=== PATIENT | male | born 1945 | race Caucasian/White ===

== ENCOUNTER → 2017-01-16 | Outpatient (CLI) | payer BC, OTHER ==
[~2017-01-16] VITALS: Ht 175.3 cm; Wt 74.2 kg
[~2017-01-16] MED LIST: CEPHALEXIN500 MG PO; CLARITIN10 M2 PO; HYDROCODON-ACE1 EAC1 PO; HYDROCODONE-APA1 TA1 PO; MELOXICAM7.5 MG PO; MOBIC7.5 MG PO; MS CONTIN 30 MG30 M1 PO; MS CONTIN30 MG PO; NORCO 7.5-3251 EACH PO; NORFLEX100 MG PO; PENICILLIN V P500 MG PO; PRILOSEC 20 MG20 MG PO; PROTONIX40 M1 PO; RESTORIL30 MG PO; VALIUM5 MG PO
--- NOTE | ~2017-01-16 | HPC ---
[facility] [address] [place] [address] PAIN MANAGEMENT CONSULTATION Name: REBEKAH RAZO Room #: REG [facility] Yi.#: [id number] Admission: 01/16/17 Attend Phys: Moshe Child DO Discharge: Date of : 47 Report #: [id number] THIS REPORT FOR: //name// CC: Irving Child HISTORY OF PRESENT ILLNESS: The patient is a 71-year-old gentleman well known to the pain clinic, typically treated for lumbar radiculopathy status post decompressive laminectomy, abdominal pain requiring complex medication management, component of axial back pain. Last seen in the pain clinic 10/17/2016. Continued on baseline medications. Urine drug screen at that time was positive for prescribed medications. He returns to pain clinic today noting medications are providing sufficient analgesia to participate in activities of daily living. No problems with daytime somnolence, mental acuity changes, constipation. He splits his time between [place] and a home at [place], [place]. Recently drove back from [place], had a 9-hour drive and a 6-hour drive. Actually, he did fairly well with this. Notes medications again are helpful. Average daily pain score is 2-3 on a 0-10 visual analog scale. Primary pain is chronic abdominal and low back. PHYSICAL EXAMINATION: GENERAL: Shows 71-year-old gentleman, BMI is 24.1 kilograms per meter squared. VITAL SIGNS: Vital signs stable as noted on the EMR. NEUROLOGIC: Cranial 2-12 are grossly intact. EYES: Pupils equal, reactive to light and accommodation. Extraocular muscles are intact. EXTREMITIES: Rises from chair using armrest, diffuse tenderness across the low back. GASTROINTESTINAL: Abdominal exam is deferred. MUSCULOSKELETAL: Gait is tandem. We reviewed the fact that opiate medications are being used to provide analgesia adequate to support activities of daily living, not attempting to achieve a specific pain score on the 0-10 Visual Analog Scale. The current opiate medications are providing sufficient analgesia to allow the patient to participate in activities of daily living. The patient is not exhibiting any aberrant behavior suggestive of drug diversion. The patient is not having any adverse reactions to medications. The patient is not suffering from daytime somnolence or mental acuity changes. The patient is managing opiate-induced constipation with appropriate rqfl-wxb-diqbwnv agents and dietary considerations. The patient was counseled on concern for caution with operating a motor vehicle while using opiate medications. A physical exam was performed and the patient's functional status was evaluated. [address] [address] PAIN MANAGEMENT CONSULTATION Name: REBEKAH RAZO Room #: REG [facility]#: [id number] Admission: 01/16/17 Attend Phys: Moshe Child DO Discharge: Date of : 49 Report #: [id number] All patients with back pain were advised against the bed rest greater than 4 days and were advised to return to normal activities. Pain score assessment was noted and the treatment plan was reviewed with the patient. All current medications, both prescribed and OTC were reviewed and reconciled on the electronic medical record. Tobacco screening was accomplished and smoking cessation was advised when indicated. BMI was noted and diet/exercise modification was recommended for all patients following outside normal parameters. I reviewed with the patient today their responsibilities to safeguard prescription medications, reviewed their responsibility to utilize medications only as prescribed by the physician. They are to seek and receive pain medications only from 1 physician group ( [facility]). They are to use 1 pharmacy and keep the clinic informed if they change pharmacies. Their responsibilities include making followup visits in a timely fashion and to avoid abrupt discontinuation of medication usage. Their responsibilities further include bringing their medications (bottles from the pharmacy with residual pills) to the visit for possible confirmation of pill counts and the patient understands it is their responsibility to submit to random drug screens to ensure both that the medications prescribed are present, and that no other controlled substances are present. All prescriptions provided today were generated electronically. ASSESSMENT: Lumbar radiculopathy status post decompressive laminectomy, chronic pain syndrome requiring complex medication management, axial back pain, abdominal pain, stable on baseline complex medication. RECOMMENDATIONS: Continue current medication unchanged including MS Contin 30 mg b.i.d., hydrocodone 10/325 one tablet 3-4 times a day, limit 100 tablets for 30 days, temazepam 30 mg a.h.s. for insomnia, Valium 5 mg b.i.d. for spasm along with Robaxin 500 mg b.i.d. Continue meloxicam 15 mg 1 a day. We did talk about taking a daily aspirin. This is specifically on days at least when he is going to be driving or flying or have prolonged periods sitting time. I have taken the liberty of writing for 3 months of current medication. Follow up at that time, earlier if needed. <ELECTRONICALLY SIGNED> By: Moshe Child DO 01/17/17 0948 [id number] [id number] Moshe Child DO /nt
[2017-01-16 10:48] VITALS: BP 151/85
== END | disposition home or self-care (01) ==
LOC: PAIN 06:58
DX: M54.16 Radiculopathy, lumbar region (principal); R10.9 Unspecified abdominal pain; M54.9 Dorsalgia, unspecified; G89.4 Chronic pain syndrome; Z87.891 Personal history of nicotine dependence

== ENCOUNTER → 2017-04-17 | Outpatient (CLI) | payer BC, OTHER ==
[~2017-04-17] VITALS: Ht 175.3 cm; Wt 74.9 kg
[~2017-04-17] MED LIST changes: +CLONAZEPAM 1 MG1 M1 PO
--- NOTE | ~2017-04-17 | HPC ---
[facility] [place] [address] PAIN MANAGEMENT CONSULTATION Name: REBEKAH RAZO Room #: REG [facility] Yi.#: [id number] Admission: 04/17/17 Attend Phys: Moshe Child DO Discharge: Date of : 47 Report #: [id number] THIS REPORT FOR: //name// CC: Irving Child The patient is a 71-year-old gentleman, long known to the pain clinic, being treated for chronic abdominal pain, lumbar radiculopathy, status post decompressive laminectomy, axial back pain, requiring high risk complex medication management. Last urine drug screen 10/17/2016, was positive for prescribed medications. The patient was last seen in the pain clinic 01/16/2017, continued on MS Contin 30 mg b.i.d., hydrocodone 10/325 one tablet 3-4 times a day, limit 100 tablets for 30 days, Valium 5 mg b.i.d. for spasm along with Robaxin 500 mg b.i.d. Meloxicam 15 mg daily, though I had suggested "nondaily" usage in consideration of coronary artery disease risk. He has been using temazepam 30 mg at bedtime to help with sleep, but is struggling with insomnia. He returns to pain clinic today noting pain medications are helpful to enable him to participate in activities of daily living, but again sleep remains fairly elusive. Notes chronic low back and abdominal pain, sharp, constant, aching, rates it 3-4 on VAS. He states he goes to bed around 10:00-10:30, does not utilize any "screen devices," does not use tablet, computer or TV. Still struggles to generate sleep. PHYSICAL EXAMINATION: Shows a 71-year-old gentleman, BMI is 24.4 kg/m2, vital signs show modest hypertension, blood pressure 156/94, pulse 89, and respirations 14. Alert and oriented to person, place and time, judged to be a reasonable historian. Rises from chair using armrest. Gait is generally tandem. Some diffuse abdominal pain. Lumbar flexion is limited. Lower extremity strength is symmetric. He lives in [place], [place] about half of the year. 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 This does require a fair bit of time on his feet. We done occasional epidural injections to help with exacerbation of radicular pain typically seen with this, we will anticipate likely doing a repeat epidural injection when I see him back in 3 months. Today, we did talk about sleep generation and relaxation techniques to include guided imagery. Suggested he look into the marie "F2G." Guided imagery talk sessions, which may help him relax. [address] [address] PAIN MANAGEMENT CONSULTATION Name: REBEKAH RAZO Room #: REG [facility]#: [id number] Admission: 04/17/17 Attend Phys: Moshe Child DO Discharge: Date of : 47 Report #: [id number] We also talked about in fact the most soporific agents typically render patient "unconscious," but do not allow him to enter REM sleep hence he never gets great restorative sleep. Today, we talked about rotating temazepam to clonazepam 1 mg at bedtime. This agent is purported to preserve REM sleep. We will try this for 3 months. We reviewed the fact that opiate medications are being used to provide analgesia adequate to support activities of daily living, not attempting to achieve a specific pain score on the 0-10 Visual Analog Scale. The current opiate medications are providing sufficient analgesia to allow the patient to participate in activities of daily living. The patient is not exhibiting any aberrant behavior suggestive of drug diversion. The patient is not having any adverse reactions to medications. The patient is not suffering from daytime somnolence or mental acuity changes. The patient is managing opiate-induced constipation with appropriate iyjf-vvi-argsrys agents and dietary considerations. The patient was counseled on concern for caution with operating a motor vehicle while using opiate medications. A physical exam was performed and the patient's functional status was evaluated. All patients with back pain were advised against the bed rest greater than 4 days and were advised to return to normal activities. Pain score assessment was noted and the treatment plan was reviewed with the patient. All current medications, both prescribed and OTC were reviewed and reconciled on the electronic medical record. Tobacco screening was accomplished and smoking cessation was advised when indicated. BMI was noted and diet/exercise modification was recommended for all patients following outside normal parameters. I reviewed with the patient today their responsibilities to safeguard prescription medications, reviewed their responsibility to utilize medications only as prescribed by the physician. They are to seek and receive pain medications only from 1 physician group ( [facility]). They are to use 1 pharmacy and keep the clinic informed if they change pharmacies. Their responsibilities include making followup visits in a timely fashion and to avoid abrupt discontinuation of medication usage. Their responsibilities further include bringing their medications (bottles from the pharmacy with residual pills) to the visit for possible confirmation of pill counts and the patient understands it is their responsibility to submit to random drug screens to ensure both that the medications prescribed are present, and that no other controlled substances are present. All prescriptions provided today were generated electronically. ASSESSMENT: Lumbar radiculopathy status post decompressive laminectomy, abdominal pain, axial back pain requiring high risk complex medication management, complicated by some chronic insomnia. [facility] [address] [place] [address] PAIN MANAGEMENT CONSULTATION Name: REBEKAH RAZO Room #: REG [facility]..#: [id number] Admission: 04/17/17 Attend Phys: Moshe Child DO Discharge: Date of : 49 Report #: [id number] RECOMMENDATION: Continue baseline medications unchanged including MS Contin 30 mg b.i.d., hydrocodone 10/325 limiting 100 tablets for 30 days. We will rotate from temazepam to clonazepam 1 mg at bedtime. Follow up in 3 months for reevaluation, earlier if needed. <ELECTRONICALLY SIGNED> By: Moshe Child DO 04/18/17 0705 1238 1743 Moshe Child DO /nt
[2017-04-17 09:32] VITALS: BP 156/94
== END ==
LOC: PAIN 06:46
DX: M54.16 Radiculopathy, lumbar region (principal); R10.9 Unspecified abdominal pain

== ENCOUNTER → 2017-07-14 | Outpatient (CLI) | payer BC, OTHER ==
[~2017-07-14] VITALS: Ht 175.3 cm; Wt 73.4 kg
--- NOTE | ~2017-07-14 | HPC ---
[facility] [address] [place] [address] PAIN MANAGEMENT CONSULTATION Name: REBEKAH RAZO [id number] Admission: 07/14/17 Attend Phys: Moshe Child DO Discharge: Date of : 47 Report #: [id number] THIS REPORT FOR: //name// CC: Irving Child HISTORY OF PRESENT ILLNESS: The patient is a very pleasant 71-year-old gentleman long known to the pain clinic, being treated for lumbar radiculopathy, status post decompressive laminectomy, chronic abdominal pain, insomnia, requiring high risk complex medication management. The patient was last seen in pain clinic on 04/17/2017, continued on high dose narcotics, approximately 75 mg equivalent of morphine a day (MS Contin 30 mg b.i.d. with hydrocodone 7.5/325 one tablet 3-4 times a day, limit 100 tablets for 30 days). At prior visit, we had rotated from temazepam to clonazepam at bedtime. The patient has done better with this from insomnia standpoint. We have continued Norflex 100 mg b.i.d. for spasm and Valium 5 mg b.i.d. for a subjective vertigo. Last urine drug screen on 10/17/2016 was positive for prescribed medications. The patient returns to pain clinic today noting medications are generally providing sufficient analgesia to participate in activities of daily living. No problems with daytime somnolence, mental acuity changes, constipation. Pain primarily low back, bilateral legs and shoulders, chronic abdominal pain which is generalized. Rates his pain fairly high in the morning, better throughout the day. PHYSICAL EXAMINATION: Shows 71-year-old gentleman, BMI is 23.9 kilograms per meter squared. Vital signs stable as noted in the EMR. Does not use tobacco products, former smoker. Rises from chair easily. Gait is tandem. Diffuse low back pain. Lumbar flexion is limited. Abdominal exam is deferred. We reviewed the fact that opiate medications are being used to provide analgesia adequate to support activities of daily living, not attempting to achieve a specific pain score on the 0-10 Visual Analog Scale. The current opiate medications are providing sufficient analgesia to allow the patient to participate in activities of daily living. The patient is not exhibiting any aberrant behavior suggestive of drug diversion. The patient is not having any adverse reactions to medications. The patient is not suffering from daytime somnolence or mental acuity changes. The patient is managing opiate-induced constipation with appropriate adnw-tyl-uxqafks agents and dietary considerations. The patient was counseled on concern for caution with operating a motor vehicle while using opiate medications. A physical exam was performed and the patient's functional status was evaluated. All patients with back pain were advised against the bed rest greater than 4 days and were advised to return to normal activities. Pain score assessment was [address] [address] PAIN MANAGEMENT CONSULTATION Name: REBEKAH RAZO [facility] [id number] Admission: 07/14/17 Attend Phys: Moshe Child DO Discharge: Date of : 49 Report #: [id number] noted and the treatment plan was reviewed with the patient. All current medications, both prescribed and OTC were reviewed and reconciled on the electronic medical record. Tobacco screening was accomplished and smoking cessation was advised when indicated. BMI was noted and diet/exercise modification was recommended for all patients following outside normal parameters. I reviewed with the patient today their responsibilities to safeguard prescription medications, reviewed their responsibility to utilize medications only as prescribed by the physician. They are to seek and receive pain medications only from 1 physician group ( [facility]). They are to use 1 pharmacy and keep the clinic informed if they change pharmacies. Their responsibilities include making followup visits in a timely fashion and to avoid abrupt discontinuation of medication usage. Their responsibilities further include bringing their medications (bottles from the pharmacy with residual pills) to the visit for possible confirmation of pill counts and the patient understands it is their responsibility to submit to random drug screens to ensure both that the medications prescribed are present, and that no other controlled substances are present. All prescriptions provided today were generated electronically. ASSESSMENT: Chronic abdominal pain, chronic back pain status post lumbar decompressive laminectomy, history of insomnia requiring high risk complex medication management, stable on baseline medication. RECOMMENDATION: Continue MS Contin 30 mg b.i.d.; hydrocodone 7.5/325, 100 tablets for 30 days; Valium 5 mg b.i.d.; Robaxin 500 mg b.i.d. and clonazepam 1 mg at bedtime. Follow up in 3 months for reevaluation, early if needed. <ELECTRONICALLY SIGNED> By: Moshe Child DO 07/16/17 0834 1050 [id number] Moshe Child DO /nt
[2017-07-14 09:23] VITALS: BP 161/89
== END ==
LOC: PAIN 07:16
DX: M54.16 Radiculopathy, lumbar region (principal); R10.9 Unspecified abdominal pain; M54.5 Low back pain; G47.00 Insomnia, unspecified; Z98.890 Other specified postprocedural states; Z79.899 Other long term (current) drug therapy

== ENCOUNTER → 2017-09-26 | Outpatient (CLI) | payer BC, OTHER ==
[~2017-09-26] VITALS: Ht 175.3 cm; Wt 73.9 kg
[~2017-09-26] MED LIST changes: +HYDROCODON-ACE1 EA12 PO; +MS CONTIN15 MG PO
--- NOTE | ~2017-09-26 | HPC ---
[facility] [address] [place] [address] PAIN MANAGEMENT CONSULTATION Name: REBEKAH RAZO Room #: REG [facility] Yi.#: [id number] Admission: 09/26/17 Attend Phys: Moshe Child DO Discharge: Date of : 47 Report #: [id number] THIS REPORT FOR: //name// CC: Irving Child HISTORY OF PRESENT ILLNESS: The patient is a very pleasant 71-year-old gentleman long known to the pain clinic, typically treated for lumbar radiculopathy status post decompressive laminectomy, chronic abdominal pain requiring high risk complex medication management. Comorbidity includes subjective vertigo and insomnia. The patient was last seen in pain clinic on 07/14/2017. Last random drug screen on 10/17/2016 was positive for prescribed medications and no others. He does return to the pain clinic today noting subjective pain score gets up to a 9 in the morning, it is 5 on a VAS at present. History of back surgery and abdominal pain status post colon resection. His BMI is 24.1 kilograms per meter squared. Blood pressure is modestly elevated at 164/79, pulse 86, respirations 16, room air oxygen saturation is 97%. He has not fallen in the last 3 months. Medication list was reconciled. We sent her last opiate consent to treat contract on 07/01/2016. Reviewed the opiate risk assessment tool today. Pain impact score is fairly low at 7/50, he had scored 60 back in 2003 when we started before medications. Opiate risk assessment tool is 2. The patient notes primary pain is low back, shoulder and left shoulder, abdomen pain is generalized. He rises from chair using armrest. Gait is tandem. Lower extremity strength is preserved. Lumbar flexion is modestly limited. At 71 years of age he appears younger than stated age. We did talk today about increasing range of motion and doing balance exercises (cristel chi?). He has remained physically active. We reviewed the fact that opiate medications are being used to provide analgesia adequate to support activities of daily living, not attempting to achieve a specific pain score on the 0-10 Visual Analog Scale. The current opiate medications are providing sufficient analgesia to allow the patient to participate in activities of daily living. The patient is not exhibiting any aberrant behavior suggestive of drug diversion. The patient is not having any adverse reactions to medications. The patient is not suffering from daytime somnolence or mental acuity changes. The patient is managing opiate-induced constipation with appropriate joqn-orv-lhlqbop agents and dietary considerations. The patient was counseled on concern for caution with operating a motor vehicle while using opiate medications. A physical exam was performed and the patient's functional status was evaluated. All patients with back pain were advised against the bed rest greater than [address] [place] [address] PAIN MANAGEMENT CONSULTATION Name: RAZOREBEKAH CASANOVA Room #: REG [facility] Aniceto#: [id number] Admission: 09/26/17 Attend Phys: Moshe Child DO Discharge: Date of : 49 Report #: [id number] days and were advised to return to normal activities. Pain score assessment was noted and the treatment plan was reviewed with the patient. All current medications, both prescribed and OTC were reviewed and reconciled on the electronic medical record. Tobacco screening was accomplished and smoking cessation was advised when indicated. BMI was noted and diet/exercise modification was recommended for all patients following outside normal parameters. I reviewed with the patient today their responsibilities to safeguard prescription medications, reviewed their responsibility to utilize medications only as prescribed by the physician. They are to seek and receive pain medications only from 1 physician group ( [facility]). They are to use 1 pharmacy and keep the clinic informed if they change pharmacies. Their responsibilities include making followup visits in a timely fashion and to avoid abrupt discontinuation of medication usage. Their responsibilities further include bringing their medications (bottles from the pharmacy with residual pills) to the visit for possible confirmation of pill counts and the patient understands it is their responsibility to submit to random drug screens to ensure both that the medications prescribed are present, and that no other controlled substances are present. All prescriptions provided today were generated electronically. ASSESSMENT: Symptomatic lumbar radiculopathy status post decompressive laminectomy, chronic abdominal pain, status post colon resection, chronic insomnia and anxiety requiring complex medication management. RECOMMENDATION: Renew current medications unchanged, MS Contin 30 mg b.i.d.; hydrocodone 7.5/325 one tablet 3-4 times a day, limit 100 tablets for 30 days. This puts the patient very near our ceiling dose of 90 mEq of morphine a day. With this, however, he has been quite stable. Lower doses have consistently caused decreased functional status. Continue diazepam 5 mg b.i.d. for vertigo, clonazepam 1 mg at bedtime for insomnia. Norflex 100 mg b.i.d. for muscle spasm and meloxicam 7.5 mg b.i.d. I have taken the liberty of writing for 3 months of current medication. Follow up at that time, earlier if needed. <ELECTRONICALLY SIGNED> By: Moshe Child DO 10/01/17 0725 1550 [id number] Mohse Child DO /nt
[2017-09-26 13:44] VITALS: BP 164/79
== END ==
LOC: PAIN 07:24
DX: M54.16 Radiculopathy, lumbar region (principal); M96.1 Postlaminectomy syndrome, not elsewhere classified; R10.9 Unspecified abdominal pain; F41.9 Anxiety disorder, unspecified; Z79.899 Other long term (current) drug therapy; Z98.890 Other specified postprocedural states

== ENCOUNTER → 2017-12-18 | Outpatient (CLI) | payer BC, OTHER ==
[~2017-12-18] VITALS: Ht 175.3 cm; Wt 72.9 kg
--- NOTE | ~2017-12-18 | HPC ---
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 Chronic pain syndrome requiring complex medication management. The patient returns to pain clinic today, last visit was 09/26/2017. Prior random drug screen approximately 1 year ago, 10/17/2016 positive for prescribed medications and no others. The patient continues to be quite functionally active. He splits his time between [place] where he had run his [employer] in [place] for nearly 30 years, and [place], [place]. He notes his subjective pain score is 6 on VAS. He states pain in back, buttocks and legs is exacerbated with sitting for prolonged periods. Abdominal pain remains fairly chronic, though does not have any problems with constipation or nausea. He continues to be physically active, he rides a bicycle nearly daily in [place], participates in multiple volunteer activities on the [place]. PHYSICAL EXAMINATION: Shows a 72-year-old gentleman appearing somewhat younger than stated age. BMI is 23.7 kilograms per meter squared. Blood pressure 151/91, pulse 82, respirations are 14. Alert and oriented to person, place and time, judged to be a reasonable historian. Cervical range of motion is full. Upper extremity strength is preserved. Rises from the chair using the armrest somewhat. Diffuse abdominal tenderness. Extensive abdominal exam was deferred. Gait is tandem. Lumbar flexion is limited. Lower extremity strength is generally symmetric. We reviewed the fact that opiate medications are being used to provide analgesia adequate to support activities of daily living, not attempting to achieve a specific pain score on the 0-10 Visual Analog Scale. The current opiate medications are providing sufficient analgesia to allow the patient to participate in activities of daily living. The patient is not exhibiting any aberrant behavior suggestive of drug diversion. The patient is not having any adverse reactions to medications. The patient is not suffering from daytime somnolence or mental acuity changes. The patient [place] [address] PAIN MANAGEMENT CONSULTATION Name: DUNGREBEKAH CASANOVA Room #: REG [facility].#: [id number] Admission: 12/18/17 Attend Phys: Moshe Child DO Discharge: Date of : 49 Report #: [id number] constipation with appropriate zfds-abr-ezzrkxj agents and dietary considerations. The patient was counseled on concern for caution with operating a motor vehicle while using opiate medications. A physical exam was performed and the patient's functional status was evaluated. All patients with back pain were advised against the bed rest greater than 4 days and were advised to return to normal activities. Pain score assessment was noted and the treatment plan was reviewed with the patient. All current medications, both prescribed and OTC were reviewed and reconciled on the electronic medical record. Tobacco screening was accomplished and smoking cessation was advised when indicated. BMI was noted and diet/exercise modification was recommended for all patients following outside normal parameters. I reviewed with the patient today their responsibilities to safeguard prescription medications, reviewed their responsibility to utilize medications only as prescribed by the physician. They are to seek and receive pain medications only from 1 physician group ( [facility]). They are to use 1 pharmacy and keep the clinic informed if they change pharmacies. Their responsibilities include making followup visits in a timely fashion and to avoid abrupt discontinuation of medication usage. Their responsibilities further include bringing their medications (bottles from the pharmacy with residual pills) to the visit for possible confirmation of pill counts and the patient understands it is their responsibility to submit to random drug screens to ensure both that the medications prescribed are present, and that no other controlled substances are present. All prescriptions provided today were generated electronically. Long discussion with the patient today about therapeutic options. I did tell him that I was leaving the practice. We will need to find another willing pain provider. 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 RECOMMENDATIONS: 1. We will check a random drug screen today. No aberrant behavior suggestive of drug diversion, simply complying with opiate consent to treat contract. 2. We elected to trial weaning opiate somewhat, currently uses MS Contin 30 mg b.i.d. with hydrocodone 7.5/325 one tablet 3-4 times a day, limit 100 tablets for 30 days. Equates to roughly 85 mg of morphine a day, putting him in the moderate risk category. I told him we would like to try and wean dose down to below 50 mg if possible. We have elected to rotate to MS Contin 15 mg q.8h., thus decreasing his overall opiate load to closer to 70 mg. We may consider [facility] [address] [place] [address] PAIN MANAGEMENT CONSULTATION Name: REBEKAH RAZO Room #: REG [facility].#: [id number] Admission: 12/18/17 Attend Phys: Moshe Child DO Discharge: Date of : 49 Report #: [id number] further weaning as able. We elected to continue other medications unchanged including diazepam 5 mg b.i.d., which has helped for some vertigo and subjective dizziness. 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 for prostaglandin mediated inflammatory pain and Norflex 100 mg b.i.d. for muscle spasm. The patient is discharged in good and stable condition with 1 month of new medication including the reduced hydrocodone dose. I will follow up at that time and if doing reasonably well, we will continue the dose for a short course with consideration for weaning hydrocodone to 5/325, thus decreasing the overall opiate load by another 7.5 mg. Discharged in good and stable condition after a prolonged visit, the patient was seen from 09:29 to approximately 10:00 a.m. Greater than 50% of time was spent reviewing therapeutic options, discussing concerns about opiate-induced hyperalgesia and reviewing CDC risk groupings for overall morphine load. <ELECTRONICALLY SIGNED> By: Moshe Child DO 12/22/17 0711 [id number] Moshe Child DO /nt
[2017-12-18 08:51] VITALS: BP 151/91
== END ==
LOC: PAIN 05:34
DX: M54.16 Radiculopathy, lumbar region (principal); R10.9 Unspecified abdominal pain; G89.4 Chronic pain syndrome; Z79.899 Other long term (current) drug therapy

== ENCOUNTER → 2018-01-29 | Outpatient (CLI) | payer BC, OTHER ==
[~2018-01-29] VITALS: Ht 172.7 cm; Wt 73.9 kg
--- NOTE | ~2018-01-29 | HPC ---
[facility] [place] [address] PAIN MANAGEMENT CONSULTATION Name: REBEKAH RAZO [id number] Admission: 01/29/18 Attend Phys: Moshe Child DO Discharge: Date of : 49 Report #: [id number] THIS REPORT FOR: //name// CC: Physician staff MYRTLE Davila, DO Moshe Child DATE OF SERVICE: 01/29/2018 The patient is a very pleasant 72-year-old gentleman whom I have seen in clinic for chronic pain concerns since 2003. The patient has had chronic abdominal pain status post multiple abdominal surgeries including colon resection secondary to ischemic bowel disease, had extensive abdominal mesh in the abdominal wall. Comorbidities include component of axial back pain status post lumbar decompressive laminectomy, some chronic anxiety and insomnia, component of myofascial pain with axial back spasm. The patient has been an opiate consent to treat contract patient for a number of years. He has been stable on opiate analgesics for some time, most recently MS Contin 30 mg b.i.d. with hydrocodone 7.5/325, limit 100 tablets for 30 days, roughly equating to 85 mg morphine equivalent daily. Last visit on 12/18/2017, the patient was noting some end of dose failure. We elected to rotate to MS Contin 15 mg q. 8 hours and continue hydrocodone 7.5/300 four a day, decreasing opiate load slightly to 75 mg morphine equivalent a day. The patient returns to [facility] today noting that the rotation has been efficacious. Continues to be quite functionally active. Splits his time between [place] and [place], [place]. He participates in multiple volunteer activities on the [place]. He rides his bicycle near daily. He [place] walk on the beach 1.5-2 hours 4-5 days a week. The patient presents to the Pain Clinic today noting subjective pain score 6 on a VAS. Primary pain is low back, shoulders and general abdominal pain. Pain is exacerbated with sitting, driving, seems to be worse in the morning. PHYSICAL EXAMINATION: Shows a pleasant 72-year-old gentleman, 5 feet 8 inches tall, 163 pounds, BMI is 24.8 kg/m2. Blood pressure shows modest hypertension at 160/94, pulse 82, respirations 16, room air oxygen saturation 94%. The patient rises from the chair using armrest. Gait is modestly antalgic. Diffuse axial tenderness. Lower extremity strength is preserved. Abdominal exam is deferred today. Functional assessment tool score is 25/70. Opiate risk assessment tool scores the patient in the low risk group. [facility] [address] [place] [address] PAIN MANAGEMENT CONSULTATION Name: DUNGREBEKAH CASANOVA Room #: REG [facility] Aniceto#: [id number] Admission: 01/29/18 Attend Phys: Moshe Child DO Discharge: Date of : 49 Report #: [id number] We reviewed the fact that opiate medications are being used to provide analgesia adequate to support activities of daily living, not attempting to achieve a specific pain score on the 0-10 Visual Analog Scale. The current opiate medications are providing sufficient analgesia to allow the patient to participate in activities of daily living. The patient is not exhibiting any aberrant behavior suggestive of drug diversion. The patient is not having any adverse reactions to medications. The patient is not suffering from daytime somnolence or mental acuity changes. The patient is managing opiate-induced constipation with appropriate rfwe-sfm-maantvy agents and dietary considerations. The patient was counseled on concern for caution with operating a motor vehicle while using opiate medications. A physical exam was performed and the patient's functional status was evaluated. All patients with back pain were advised against the bed rest greater than 4 days and were advised to return to normal activities. Pain score assessment was noted and the treatment plan was reviewed with the patient. All current medications, both prescribed and OTC were reviewed and reconciled on the electronic medical record. Tobacco screening was accomplished and smoking cessation was advised when indicated. BMI was noted and diet/exercise modification was recommended for all patients following outside normal parameters. I reviewed with the patient today their responsibilities to safeguard prescription medications, reviewed their responsibility to utilize medications only as prescribed by the physician. They are to seek and receive pain medications only from 1 physician group ( [facility]). They are to use 1 pharmacy and keep the clinic informed if they change pharmacies. Their responsibilities include making followup visits in a timely fashion and to avoid abrupt discontinuation of medication usage. Their responsibilities further include bringing their medications (bottles from the pharmacy with residual pills) to the visit for possible confirmation of pill counts and the patient understands it is their responsibility to submit to random drug screens to ensure both that the medications prescribed are present, and that no other controlled substances are present. All prescriptions provided today were generated electronically. Last random drug screen 12/18/2017 is positive for prescribed medications and no others. ASSESSMENT: Chronic abdominal pain, axial back pain status post lumbar decompressive laminectomy, chronic pain syndrome requiring complex medication management. RECOMMENDATION: Long discussion with the patient today. He was seen in the clinic from 8:10 to approximately 8:40. Greater than 50% of the 25+ minute visit was spent counseling the patient. [address] [address] PAIN MANAGEMENT CONSULTATION Name: REBEKAH RAZO Room #: REG [facility] [place]#: [id number] Admission: 01/29/18 Attend Phys: Moshe Child DO Discharge: Date of : 49 Report #: [id number] We elected to continue the lowered opiate load, MS Contin 15 mg q. 8 hours, hydrocodone 7.5/300 up to 4 a day. May at some point consider trialing hydrocodone 5 mg tablet if able. We elected to continue 5 mg diazepam b.i.d., which the patient uses for some subjective vertigo. Clonazepam 1 mg at bedtime for insomnia, Norflex 100 mg b.i.d. for axial muscle spasm, and meloxicam 7.5 b.i.d. for prostaglandin-mediated inflammatory pain. I am leaving the practice area, had a discussion with the patient about this at last visit. Since the patient is planning on spending more time in [place] when his retires next year rather than establish with another pain physician here at [facility], his gerontologist, Dr. Carline Davila, has kindly agreed to take over patient's pain management. [place] has recently legalized medical marijuana. I opined to the patient that there likely is some efficacy for CBD oil and chronic pain concerns. I pointed out that I would be concerned for concurrent use of THC with his opiate and benzodiazepine use. This "drug soup" of multiple central acting agents may have untoward negative effects. Nonetheless, I would suggest looking at CBD oil as a possible adjuvant to help with pain concerns with the caveat that it should be THC free. With this, he may be able to continue to lower his overall opiate load. With CDC guidelines recommending risk stratification at 0-50 mg morphine equivalent a day, 50-90 and 90+ mg morphine equivalents a day, I would like to try and get the patient under the 50 mg morphine equivalent. Currently, he is at about 75 mg Morphine equivalent milligrams/day. Discharged in good and stable condition after prolonged visit. I did provide the patient with 3 months' worth of prescriptions with 4 and 8-week release of individual prescriptions for his scheduled II opiate analgesics. Again, we will have him follow up with his primary physician in [place], . <ELECTRONICALLY SIGNED> By: Moshe Child DO 01/30/18 0822 [id number] Moshe Child DO /nt
[2018-01-29 08:09] VITALS: BP 160/94
== END ==
LOC: PAIN 06:50
DX: G89.29 Other chronic pain (principal); M96.1 Postlaminectomy syndrome, not elsewhere classified; R10.9 Unspecified abdominal pain